=== PATIENT | male | born 2000 | race Caucasian/White ===

== ENCOUNTER 2024-12-19 15:10 | Emergency (ER) | payer MEDICAID ==
[2024-12-19 16:09] LABS: BASOPHILS % (AUTO) 0.2 % (0-1); EOSINOPHILS % (AUTO) 0.4 % (0-6); HEMATOCRIT 42.5 % (42.0-52.0); HEMOGLOBIN 14.4 g/dl (14.0-17.9); LYMPHOCYTES # (AUTO) 1.3 X10'3 (1.1-4.8); LYMPHOCYTES % (AUTO) 15.4 % (21-51); MEAN CORPUSCULAR HEMOGLOBIN 29.2 PG (27.0-31.0); MONOCYTES # (AUTO) 0.9 X10'3 (0-0.9); MONOCYTES % (AUTO) 10.1 % (2-12); NEUTROPHILS # (AUTO) 6.2 X10'3 (1.8-7.7); NEUTROPHILS % (AUTO) 73.9 % (42-75); PLATELET COUNT 217 X10'3 (140-440); RED BLOOD COUNT 4.94 X10'6 (4.70-6.10); RED CELL DISTRIBUTION WIDTH 12.5 % (11.5-14.5); WHITE BLOOD COUNT 8.5 X10'3 (4.5-11.0)
[2024-12-19 16:17] LABS: ALBUMIN 3.9 G/DL (3.4-5.0); ANION GAP 3 (8-16); BLOOD UREA NITROGEN 17 MG/DL (7-18); BUN/CREATININE RATIO 14.8 (10.0-20.0); CALCIUM 8.8 MG/DL (8.5-10.1); CHLORIDE 102 MMOL/L (99-107); CREATININE 1.15 MG/DL (0.60-1.10); GLUCOSE 99 MG/DL (70-104); POTASSIUM 4.1 MMOL/L (3.5-5.1); SODIUM 138 MMOL/L (135-145); TOTAL CARBON DIOXIDE 32.6 MMOL/L (24-32); eGFR 77 ML/MIN
[2024-12-19 16:19] LABS: BILIRUBIN,URINE NEGATIVE (Neg); CLARITY,URINE CLEAR (Clear); COLOR,URINE YELLOW (Yellow); GLUCOSE, URINE NEGATIVE (Neg); KETONES,URINE NEGATIVE (Neg); LEUKOCYTE ESTERASE ,URINE NEGATIVE (Neg); NITRITES, URINE NEGATIVE (Neg); OCCULT BLOOD,URINE NEGATIVE (Neg); PROTEIN,URINE NEGATIVE (Neg); UROBILINOGEN,URINE 0.2 E.U/dL (0.2-1.0)
[2024-12-19 16:31] LABS: PH,URINE 6.5 (4.8-8.0)
[2024-12-19 16:36] LABS: UA COLLECTION TYPE URINAL
[2024-12-19 17:42] VITALS: BP 132/70; PULSE 93; RESP 16; O2SAT 97
[2024-12-19 17:48] VITALS: TEMP 99.4
== END 2024-12-19 17:50 | disposition home or self-care (01) ==
LOC: ER 15:11
DX: R50.82 Postprocedural fever (principal); Z20.822 Contact with and (suspected) exposure to COVID-19; R52 Pain, unspecified
CPT/HCPCS: 36415; 71045; 80048; 81003; 85025; 87502; 87503; 87811; 99284